=== PATIENT | female | born 2000 | race Caucasian/White ===

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

== ENCOUNTER 2020-10-23 17:40 | Emergency (ER) | payer BC, MEDICAID ==
--- NOTE | 2020-10-23 19:46 | CR ---
Chest: Portable AP view of the chest was obtained. Comparison: Prior chest x-ray of 11/15/19. Heart size and mediastinum are within normal limits for portable technique. There is visualization of the minor fissure overlying the sacrum. Very minimal linear atelectasis is seen within the left midlung. Lungs otherwise are clear with no acute parenchymal change. Tracheostomy tube is seen. Fixation rods are seen within the thoracic and lumbar spine. Impression: 1. Findings believed to be nonacute as described above. 2. No acute finding is appreciated. Diagnostic code #2
--- NOTE | 2020-10-23 19:59 | EDM.PDOC ---
<Yrn Blakely M - Last Filed: 10/23/20 21:05> ED HPI GENERAL MEDICAL PROBLEM - General Chief Complaint: Skin Complaint Stated Complaint: BACK WOUND COMPLAINT Time Seen by Provider: 10/23/20 18:20 Source of Information: Reports: Family History Limitations: Reports: No Limitations - History of Present Illness INITIAL COMMENTS - FREE TEXT/NARRATIVE: 20-year-old female with a history of holoposencephalopathy presents to the emergency department with her aunt and grandmother with complaints of an ulcer noted to a skin fold crease in her right lower back. The caregiver states that for the past few evenings she has run a low-grade temp of 100. They state that they just noticed the open area to her lower back within the last couple of days. They state it is the size of a pencil eraser however it is oozing purulent drainage. Of note, the patient recently completed a course of antibiotics for pneumonia. Caregivers also report that the patient has had decreased urine output over the past couple of days and it is more concentrated. She is incontinent of bowel and bladder. The patient does have a tracheostomy in place and she is noncommunicative. She does have a feeding tube noted to her left upper abdomen. She has nonverbal and wheelchair bound. 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 - Related Data Allergies Allergy/AdvReac Type Severity Reaction Status Date / Time No Known Allergies Allergy Verified 10/23/20 18:13 Home Meds: Home Meds Albuterol [Proventil Neb Soln] 0.83 inh NEB Q4H PRN 08/30/13 [History] Desmopressin Acetate [Ddavp] 0.1 mg GTUBE TID 08/30/13 [History] diazePAM [Diazepam] 1.5 ml JTUBE DAILY 08/30/13 [History] levETIRAcetam [Keppra] 2,000 mg GTUBE BID 11/15/19 [History] Lactulose 20 gm GTUBE ASDIRECTED 10/23/20 [History] Levothyroxine 25 mcg GTUBE ACBREAKFAST 10/23/20 [History] Valproic Acid (As Sodium Salt) [Valproic Acid] 1,000 mg GTUBE BID 10/23/20 [History] cephALEXin [Cephalexin] 500 mg PO TID #14 capsule 10/23/20 [Rx] hydrOXYzine HCl [Hydroxyzine HCl] 12.5 ml GTUBE BID 10/23/20 [History] Past Medical History HEENT History: Reports: None Cardiovascular History: Reports: None Respiratory History: Reports: Asthma, Pneumonia, Recurrent, Other (See Below) Other Respiratory History: hx RSV Gastrointestinal History: Reports: None Genitourinary History: Reports: Urinary Incontinence Musculoskeletal History: Reports: None Neurological History: Reports: Other (See Below) Other Neuro History: semilobar holoprosencephaly Psychiatric History: Reports: Developmental Delay Endocrine/Metabolic History: Reports: Other (See Below) Other Endocrine/Metabolic History: Diabetes insipitus Hematologic History: Reports: Blood Transfusion(s) Oncologic (Cancer) History: Reports: None Dermatologic History: Reports: None - Infectious Disease History Infectious Disease History: Reports: RSV - Past Surgical History Head Surgeries/Procedures: Reports: Other (See Below) HEENT Surgical History: Reports: Adenoidectomy, Tonsillectomy Cardiovascular Surgical History: Reports: None GI Surgical History: Reports: Belle Fundoplication, Other (See Below) Other GI Surgeries/Procedures: G-tube Neurological Surgical History: Reports: Spinal Fusion, Other (See Below) Other Neurological Surgeries/Procedures: hip surgeries Musculoskeletal Surgical History: Reports: Other (See Below) Other Musculoskeletal Surgeries/Procedures:: 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 - History Comment History Comment: CP spastic quadriplegia, semilobar holoprosencephaly, DI, congenital bilateral hip subluxation, GERD with Belle fundoplication, g-tube status, NPO, microcephaly, muscle spasticity, dysphagia, hypertension, ovarian cyst, solitary kidney, neurogenic bladder Social & Family History - Family History Family Medical History: No Pertinent Family History - Tobacco Use Tobacco Use Status *Q: Never Tobacco User Second Hand Smoke Exposure: No - Caffeine Use Caffeine Use: Reports: None - Recreational Drug Use Recreational Drug Use: No - Living Situation & Occupation Living situation: Reports: Other ED ROS GENERAL - Review of Systems Review Of Systems: See Below Constitutional: Reports: Fever HEENT: Reports: Other (Tracheostomy in place) Respiratory: Reports: No Symptoms Cardiovascular: Reports: No Symptoms Endocrine: Reports: No Symptoms GI/Abdominal: Reports: Other (Patient has a bowel movement daily however has not had 1 yet today). Denies: Constipation, Diarrhea, Nausea, Vomiting : Reports: Other (Patient is incontinent of urine; caregiver states that urine has been more concentrated the past couple of days and has had decreased urine output) Musculoskeletal: Reports: Other (Upper and lower extremities with no purposeful movement) Skin: Reports: Other (Open area to right lower back within a skin fold the size of a pencil eraser draining purulent drainage) Neurological: Reports: Other (Patient is nonverbal and noncommunicative. History ofholoprosencephaly) Psychiatric: Reports: No Symptoms Hematologic/Lymphatic: Reports: No Symptoms Immunologic: Reports: No Symptoms ED EXAM, SKIN/RASH Exam: See Below Exam Limited By: No Limitations General Appearance: Alert, WD/WN, No Apparent Distress Eye Exam: Bilateral Eye: PERRL Ears: Normal External Exam Nose: Normal Inspection Throat/Mouth: Normal Inspection, Normal Lips, No Airway Compromise Head: Atraumatic Neck: Other (Tracheostomy in place) Respiratory/Chest: No Respiratory Distress. No: Lungs Clear (Coarse lung sounds throughout) Cardiovascular: Normal Peripheral Pulses, Regular Rate, Rhythm, Other (Heart tones are difficult to auscultate over coarse lung sounds) GI/Abdominal: Normal Bowel Sounds, Soft, Distended (Female) Exam: Deferred Rectal (Female) Exam: Deferred Back Exam: Other (Open area noted to skin fold and right lower back approximately the size of a pencil eraser) Extremities: Normal Inspection, Other (No purposeful movement noted to the upper extremity or lower extremities.) Neurological: Alert Psychiatric: Normal Affect Skin: Warm, Dry, Normal Color, No Rash, Wound/Incision (Open area noted to right lower back within a skin fold approximately the size of a pencil eraser draining purulent drainage). No: Intact Location, Skin: Back Associated features: Weeping (Purulent drainage) Lymphatic: No Adenopathy Course - Vital Signs Text/Narrative:: As stated above the patient does have a significant medical history due to holoprosencephalogy. Upon assessment the patient is lying in bed. She does not appear to be in discomfort. She does have a trach in place and does have coarse lung sounds noted. Abdomen is distended but soft. PEG tube noted to left upper abdomen. Family does have questions regarding the PEG tube and believe that it appears to be tight fitting however they state that it is to be changed out for a larger size within the next week. There is an ulcer noted to the patient's right lower back within a skin fold about the size of a pencil eraser. There is no erythema noted around the ulcer. The open area is jaramillo- tinged with purulent drainage noted. We will culture the open area. I have ordered labs to include a CBC, CMP and a C-reactive protein. We will do a follow-up chest x-ray as the family states they have not done this since completing the course of antibiotics to treat pneumonia. Will obtain a urinalysis via straight cath with micro and culture if indicated. - Re-Assessments/Exams Free Text/Narrative Re-Assessment/Exam: 10/23/20 20:00 Nothing acute is appreciated on portable view of the chest. Official radiologist report is pending Nursing staff notifies me that patient skin feels hot to touch and she is now tachycardic in the 120s. We will also order blood cultures x2 and a lactic acid. 10/23/20 20:10 Radiologist impression portable view of the chest: Heart size and mediastinum are within normal limits for portable technique. There is visualization of the m inor fissure overlying the sacrum. Very minimal linear atelectasis is seen within the left midlung. Lungs otherwise are clear with no acute parenchymal change. Tracheostomy tube is seen. Fixation rods are seen within the thoracic and lumbar spine. 10/23/20 21:05 Staff notifies me that the patient's rectal temperature is 100.1. I have ordered a Tylenol suppository. Dr. Mcclain will be taking over care of this patient. Departure - Departure Disposition: Home, Self-Care 01 Clinical Impression: UTI (urinary tract infection) Qualifiers: Urinary tract infection type: acute cystitis Hematuria presence: without hematuria Qualified Code(s): N30.00 - Acute cystitis without hematuria Open back wound Qualifiers: Encounter type: initial encounter - Discharge Information Prescriptions: cephALEXin [Cephalexin] 500 mg PO TID #14 capsule Instructions: Urinary Tract Infection, Adult, [id number] Referrals: Carey Meeks MD [Primary Care Provider] - Forms: ED Department Discharge Additional Instructions: We have given rocephin 2 grams IV this evening. Start Cephlexin 500 mg 3 times daily starting tomorrow. Prescription has been sent to [facility]. Follow up clinic for recheck in about 5 to 7 days. Call for appt. Return to ED as needed if symptoms worsening in any way. Sepsis Event Note (ED) - Evaluation Sepsis Screening Result: No Definite Risk <Alexander Miller - Last Filed: 10/27/20 07:39> Course - Re-Assessments/Exams Free Text/Narrative Re-Assessment/Exam: 10/27/20 07:39 in receipt of urine culture obtained by catheterization on October 23. Urine is growing out Klebsiella pneumoniae 10,000-50,000 colony-forming units per mL. Organism is sensitive to Augmentin cefazolin ceftriaxone Cipro Floxin and levofloxacin. Resistant to Macrobid and Bactrim. The patient was given Rocephin 2 g intravenously and started on cephalexin 500 mg 3 times daily for suspect urinary tract infection and also coverage potentially of skin infection with an ulcer lower back in the skin fold. At this time no change in medications will be made. She is to be following up with her primary care provider Dr. Carey Orr this week. <James Mcclain - Last Filed: 10/31/20 07:22> Course - Vital Signs Last Recorded V/S: Last Vital Signs Temp 98.2 F 10/23/20 23:30 Pulse 115 H 10/23/20 23:30 Resp 18 10/23/20 23:30 BP 133/80 10/23/20 23:30 Pulse Ox 96 10/23/20 23:30 - Orders/Labs/Meds Labs: Laboratory Tests 10/23/20 10/23/20 10/23/20 Range/Units 19:07 20:04 20:36 WBC 9.97 (3.98-10.04) K/mm3 RBC 3.90 L (3.98-5.22) M/mm3 Hgb 12.2 D (11.2-15.7) gm/dl Hct 36.9 (34.1-44.9) % MCV 94.6 D (79.4-94.8) fl MCH 31.3 (25.6-32.2) pg MCHC 33.1 (32.2-35.5) g/dl RDW Std Deviation 42.6 (36.4-46.3) fL Plt Count 361 (182-369) K/mm3 MPV 9.2 L (9.4-12.3) fl Neut % (Auto) 70.6 (34.0-71.1) % Lymph % (Auto) 13.2 L (19.3-51.7) % [facility] % (Auto) 15.2 H (4.7-12.5) % Eos % (Auto) 0.6 L (0.7-5.8) Baso % (Auto) 0.4 (0.1-1.2) % Neut # (Auto) 7.03 H (1.56-6.13) K/mm3 Lymph # (Auto) 1.32 (1.18-3.74) K/mm3 [facility] # (Auto) 1.52 H (0.24-0.36) K/mm3 Eos # (Auto) 0.06 (0.04-0.36) K/mm3 Baso # (Auto) 0.04 (0.01-0.08) K/mm3 Manual Slide Review Abnormal smear Sodium 144 (136-145) mEq/L Potassium 4.8 (3.5-5.1) mEq/L Chloride 103 (98-107) mEq/L Carbon Dioxide 33 H (21-32) mEq/L Anion Gap 12.8 (5-15) BUN 14 (7-18) mg/dL Creatinine 0.5 L (0.55-1.02) mg/dL Est Cr Clr Drug Dosing 154.98 mL/min Estimated GFR (MDRD) > 60 (>60) mL/min BUN/Creatinine Ratio 28.0 H (14-18) Glucose 109 H (70-99) mg/dL Lactic Acid (0.4-2.0) mmol/L Calcium 9.4 (8.5-10.1) mg/dL Total Bilirubin 0.1 L (0.2-1.0) mg/dL AST 12 L (15-37) U/L ALT 11 L (14-59) U/L Alkaline Phosphatase 74 (46-116) U/L C-Reactive Protein 3.2 H* (<1.0) mg/dL Total Protein 7.8 (6.4-8.2) g/dl Albumin 3.1 L (3.4-5.0) g/dl Globulin 4.7 gm/dL Albumin/Globulin Ratio 0.7 L (1-2) Urine Color Yellow (Yellow) Urine Appearance Clear (Clear) Urine pH 8.5 H (5.0-8.0) Ur Specific [place] 1.015 (1.005-1.030) Urine Protein Trace H (Negative) Urine Glucose (UA) Negative (Negative) Urine Ketones Negative (Negative) Urine Occult Blood Negative (Negative) Urine Nitrite Negative (Negative) Urine Bilirubin Negative (Negative) Urine Urobilinogen 2.0 H (0.2-1.0) Ur Leukocyte Esterase 1+ H (Negative) Urine RBC 0-5 (0-5) /hpf Urine WBC 0-5 (0-5) /hpf Ur Squamous Epith Cells 0-5 (0-5) /hpf Urine Bacteria Few (FEW) /hpf Urine Mucus Not seen (FEW) /hpf 10/23/20 Range/Units 20:36 WBC (3.98-10.04) K/mm3 RBC (3.98-5.22) M/mm3 Hgb (11.2-15.7) gm/dl Hct (34.1-44.9) % MCV (79.4-94.8) fl MCH (25.6-32.2) pg MCHC (32.2-35.5) g/dl RDW Std Deviation (36.4-46.3) fL Plt Count (182-369) K/mm3 MPV (9.4-12.3) fl Neut % (Auto) (34.0-71.1) % Lymph % (Auto) (19.3-51.7) % [facility] % (Auto) (4.7-12.5) % Eos % (Auto) (0.7-5.8) Baso % (Auto) (0.1-1.2) % Neut # (Auto) (1.56-6.13) K/mm3 Lymph # (Auto) (1.18-3.74) K/mm3 [facility] # (Auto) (0.24-0.36) K/mm3 Eos # (Auto) (0.04-0.36) K/mm3 Baso # (Auto) (0.01-0.08) K/mm3 Manual Slide Review Sodium (136-145) mEq/L Potassium (3.5-5.1) mEq/L Chloride (98-107) mEq/L Carbon Dioxide (21-32) mEq/L Anion Gap (5-15) BUN (7-18) mg/dL Creatinine (0.55-1.02) mg/dL Est Cr Clr Drug Dosing mL/min Estimated GFR (MDRD) (>60) mL/min BUN/Creatinine Ratio (14-18) Glucose (70-99) mg/dL Lactic Acid 1.9 (0.4-2.0) mmol/L Calcium (8.5-10.1) mg/dL Total Bilirubin (0.2-1.0) mg/dL AST (15-37) U/L ALT (14-59) U/L Alkaline Phosphatase (46-116) U/L C-Reactive Protein (<1.0) mg/dL Total Protein (6.4-8.2) g/dl Albumin (3.4-5.0) g/dl Globulin gm/dL Albumin/Globulin Ratio (1-2) Urine Color (Yellow) Urine Appearance (Clear) Urine pH (5.0-8.0) Ur Specific [place] (1.005-1.030) Urine Protein (Negative) Urine Glucose (UA) (Negative) Urine Ketones (Negative) Urine Occult Blood (Negative) Urine Nitrite (Negative) Urine Bilirubin (Negative) Urine Urobilinogen (0.2-1.0) Ur Leukocyte Esterase (Negative) Urine RBC (0-5) /hpf Urine WBC (0-5) /hpf Ur Squamous Epith Cells (0-5) /hpf Urine Bacteria (FEW) /hpf Urine Mucus (FEW) /hpf Meds: Medications Discontinued Medications Generic Name Dose Route Start Last Admin Trade Name Freq PRN Reason Stop Dose Admin Acetaminophen 650 mg 10/23/20 21:05 10/23/20 21:16 Acetaminophen 650 Mg Supp RECTAL 10/23/20 21:06 650 mg NOW ONE Administration Ceftriaxone Sodium 2 gm/ 100 mls @ 200 mls/hr 10/23/20 22:20 10/23/20 22:28 Sodium Chloride IV 10/23/20 22:49 200 mls/hr ONETIME ONE Administration - Re-Assessments/Exams Free Text/Narrative Re-Assessment/Exam: 10/23/20 22:24. Have assumed care after change of shift. I agree with Hx and exam as documented by Jesus Blakely. Cath Ua does come back positive for UTI. urine culture ordered. Will give rocephin 2 grams IV. Will start on cephalexin 500 tid for 5 days. Departure - Departure Time of Disposition: 22:48 Condition: Fair
[2020-10-23] MEDS ORDERED: Acetaminophen 650 MG Supp RECTAL ONE (21:05)
[2020-10-23] MEDS ORDERED: cefTRIAXone 2 GM in Sodium Chloride 0.9% 100 ML IV ONE (22:20)
[2020-10-23 23:47] VITALS: BP 133/80; PULSE 115
== END 2020-10-23 23:47 | disposition home or self-care (01) ==
LOC: JD.ED 17:40
DX: S31.000A Unspecified open wound of lower back and pelvis without penetration into retroperitoneum, initial encounter (principal); N30.00 Acute cystitis without hematuria; I10 Essential (primary) hypertension; Z79.899 Other long term (current) drug therapy; X58.XXXA Exposure to other specified factors, initial encounter
CPT/HCPCS: 36415; 71045; 80053; 81001; 83605; 85025; 86140; 87040; 87070; 87075; 87077; 87086; 87088; 87186; 87205; 96365; 99284; A9270; J0696

== ENCOUNTER 2021-03-10 11:17 | Emergency (ER) | payer BC, MEDICAID ==
[2021-03-10] MEDS ORDERED: Sodium Chloride 0.9% 1,000 ML IV ONE ×2 (11:31→12:53)
[2021-03-10] MEDS ORDERED: Sodium Chloride 0.9% 10 ML Syringe FLUSH PRN (11:31)
[2021-03-10 11:36] VITALS: PULSE 152
--- NOTE | 2021-03-10 11:43 | EDM.PDOC ---
ED HPI GENERAL MEDICAL PROBLEM - General Chief Complaint: Respiratory Problem Stated Complaint: FEVER/ SOB Time Seen by Provider: 03/10/21 11:24 Source of Information: Reports: Family (mother), RN Notes Reviewed History Limitations: Reports: No Limitations - History of Present Illness INITIAL COMMENTS - FREE TEXT/NARRATIVE: Patient is a 20-year-old female brought into the ER by her mother for the evaluation of a fever and cough. Patient has multiple congenital issues, is wheelchair-bound, and has a trach. Patient is nonverbal, mother provides most of the history. Mother states that the patient became somewhat ill last night, and had a fever this morning as high as 103 F. Mother did give some ibuprofen for this today. Mother states that the patient has had thick secretions, coming from her trach, which has required her to turn her oxygen requirements up during nighttime use. Mother states that the patient is typically on 4 L via trach collar but now she is requiring about 5 L to get sats in the low 90s. Mother states that she does have another child at home sick, for the last month but he did test negative with an at-home test for COVID-19 few days ago. Mother states that she did give the patient some cough medicine as well which she typically does not do. Mother states that the patient also has had decreased urine output that she was concerned about. Patient has received her initial Pfizer COVID shots, along with a booster, and did receive her flu shot this year as well. Primary care doctor is Dr. Meeks. - Related Data Allergies Allergy/AdvReac Type Severity Reaction Status Date / Time No Known Allergies Allergy Verified 03/10/21 11:45 Home Meds: Home Meds Albuterol [Proventil Neb Soln] 0.83 inh NEB Q4H PRN 08/30/13 [History] Desmopressin Acetate [Ddavp] 0.1 mg GTUBE TID 08/30/13 [History] diazePAM [Diazepam] 1.5 ml JTUBE DAILY 08/30/13 [History] levETIRAcetam [Keppra] 2,000 mg GTUBE BID 11/15/19 [History] Lactulose 20 gm GTUBE ASDIRECTED 10/23/20 [History] Levothyroxine 25 mcg GTUBE ACBREAKFAST 10/23/20 [History] Valproic Acid (As Sodium Salt) [Valproic Acid] 1,000 mg GTUBE BID 10/23/20 [History] hydrOXYzine HCl [Hydroxyzine HCl] 12.5 ml GTUBE BID 10/23/20 [History] Azithromycin [Zithromax 200 MG/5 ML Susp] 250 mg PEGTUBE ASDIRECTED 5 Days #50 ml 03/10/21 [Rx] Cefdinir [Omnicef 250 MG/5 ML Susp] 300 mg PEGTUBE BID 7 Days #275 ml 03/10/21 [Rx] Past Medical History Cardiovascular History: Reports: Hypertension Respiratory History: Reports: Asthma, Pneumonia, Recurrent, Other (See Below) Other Respiratory History: 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 Gastrointestinal History: Reports: GERD, Other (See Below) Other Gastrointestinal History: dysphagia; Pt is NPO and has G-tube; has solitary kidney Genitourinary History: Reports: Neurogenic Bladder, Urinary Incontinence [employer]ESS[employer] History: Reports: Other (See Below) (hx/o ovarian cyst) Musculoskeletal History: Reports: Other (See Below) Other Musculoskeletal History: congenital bilateral hip subluxation Neurological History: Reports: Cerebral Palsy (CP with spastic quadriplegia), Seizure, Other (See Below) Other Neuro History: semilobar holoprosencephaly Psychiatric History: Reports: Developmental Delay Endocrine/Metabolic History: Reports: Other (See Below) Other Endocrine/Metabolic History: Diabetes insipidus Hematologic History: Reports: Blood Transfusion(s) Dermatologic History: Reports: Decubitus Ulcer - Infectious Disease History Infectious Disease History: Reports: RSV - Past Surgical History HEENT Surgical History: Reports: Adenoidectomy, Tonsillectomy GI Surgical History: Reports: Belle Fundoplication, Other (See Below) Other GI Surgeries/Procedures: G-tube Neurological Surgical History: Reports: Spinal Fusion Musculoskeletal Surgical History: Reports: Other (See Below) Other Musculoskeletal Surgeries/Procedures:: hip surgeries d/t congenital issues - History Comment History Comment: Pt has [employer] COVID-19 vaccine with current booster; Influenza shot for 2020 season Social & Family History - Family History Family Medical History: No Pertinent Family History - Caffeine Use Caffeine Use: Reports: None - Living Situation & Occupation Living situation: Reports: Other ED ROS GENERAL - Review of Systems Review Of Systems: Comprehensive ROS is negative, except as noted in HPI. ED EXAM, GENERAL - Physical Exam Exam: See Below Exam Limited By: Physical Impairment General Appearance: Alert, WD/WN, No Apparent Distress Respiratory/Chest: No Respiratory Distress, No Accessory Muscle Use, Chest Non- Tender, Rhonchi (bilateral). No: Wheezing Cardiovascular: Normal Peripheral Pulses, Regular Rate, Rhythm, No Edema GI/Abdominal: Normal Bowel Sounds, Soft, Non-Tender, No Organomegaly, No Distention Extremities: Normal Inspection, Normal Capillary Refill Neurological: Alert, Oriented Psychiatric: Normal Affect, Normal Mood Skin Exam: Warm, Dry, Intact, Normal Color, No Rash Course - Vital Signs Last Recorded V/S: Last Vital Signs Temp 97.4 F 03/10/21 11:29 Pulse 152 H 03/10/21 11:29 Resp 23 H 03/10/21 11:29 BP 158/88 H 03/10/21 11:52 Pulse Ox 98 03/10/21 11:29 - Orders/Labs/Meds Orders: Active Orders 24 hr Category Date Time Status Blood Pressure Mgt: Sepsis [RC] Q15MX2 Care 03/10/21 11:32 Ordered Chest 1V Frontal [CR] Stat Exams 03/10/21 11:31 Ordered BLOOD CULTURE [MREF] Stat Lab 03/10/21 11:32 Ordered BLOOD CULTURE [MREF] Stat Lab 03/10/21 11:32 Ordered Sodium Chloride 0.9% [Saline Flush] Med 03/10/21 11:31 Ordered 10 ml FLUSH ASDIRECTED PRN Blood Culture x2 Reflex Set [OM.PC] Stat Oth 03/10/21 11:32 Ordered Isolation [COMM] Routine Oth 03/10/21 11:42 Ordered Saline Lock Insert [OM.PC] Stat Oth 03/10/21 11:32 Ordered Medication Orders Sodium Chloride (Sodium Chloride 0.9% 10 Ml Syringe) 10 ml FLUSH ASDIRECTED PRN PRN Reason: Keep Vein Open Last Admin: 03/10/21 11:57 Dose: 10 ml Documented by: LORAINE Labs: Laboratory Tests 03/10/21 03/10/21 03/10/21 Range/Units 11:47 11:47 12:10 WBC 24.35 H (3.98-10.04) K/mm3 RBC 4.05 (3.98-5.22) M/mm3 Hgb 12.4 (11.2-15.7) gm/dl Hct 38.7 (34.1-44.9) % MCV 95.6 H (79.4-94.8) fl MCH 30.6 (25.6-32.2) pg MCHC 32.0 L (32.2-35.5) g/dl RDW Std Deviation 43.9 (36.4-46.3) fL Plt Count 303 (182-369) K/mm3 MPV 9.3 L (9.4-12.3) fl Neutrophils % (Manual) 82 H (40-60) % Band Neutrophils % 0 (0-10) % Lymphocytes % (Manual) 6 L (20-40) % Atypical Lymphs % 0 % Monocytes % (Manual) 12 H (2-10) % Eosinophils % (Manual) 0 L (0.7-5.8) % Basophils % (Manual) 0 L (0.1-1.2) Platelet Estimate Adequate Anisocytosis 1+ slight RBC Morph Comment Abnormal Sodium (136-145) mEq/L Potassium (3.5-5.1) mEq/L Chloride (98-107) mEq/L Carbon Dioxide (21-32) mEq/L Anion Gap (5-15) BUN (7-18) mg/dL Creatinine (0.55-1.02) mg/dL Est Cr Clr Drug Dosing mL/min Estimated GFR (MDRD) (>60) mL/min BUN/Creatinine Ratio (14-18) Glucose (70-99) mg/dL Lactic Acid (0.4-2.0) mmol/L Calcium (8.5-10.1) mg/dL Total Bilirubin (0.2-1.0) mg/dL AST (15-37) U/L ALT (14-59) U/L Alkaline Phosphatase (46-116) U/L C-Reactive Protein (<1.0) mg/dL Total Protein (6.4-8.2) g/dl Albumin (3.4-5.0) g/dl Globulin gm/dL Albumin/Globulin Ratio (1-2) Urine Color Yellow (Yellow) Urine Appearance Clear (Clear) Urine pH 6.5 (5.0-8.0) Ur Specific [place] 1.025 (1.005-1.030) Urine Protein 2+ H (Negative) Urine Glucose (UA) Negative (Negative) Urine Ketones 1+ H (Negative) Urine Occult Blood Negative (Negative) Urine Nitrite Negative (Negative) Urine Bilirubin 1+ H (Negative) Urine Urobilinogen 4.0 H (0.2-1.0) Ur Leukocyte Esterase Negative (Negative) Influenza Type A RNA Negative (NEGATIVE) RSV RNA (INAAT) Negative (NEGATIVE) Influenza Type B RNA Negative (NEGATIVE) SARS-CoV-2 RNA (MITUL) Negative (NEGATIVE) 03/10/21 03/10/21 03/10/21 Range/Units 12:10 12:10 14:25 WBC (3.98-10.04) K/mm3 RBC (3.98-5.22) M/mm3 Hgb (11.2-15.7) gm/dl Hct (34.1-44.9) % MCV (79.4-94.8) fl MCH (25.6-32.2) pg MCHC (32.2-35.5) g/dl RDW Std Deviation (36.4-46.3) fL Plt Count (182-369) K/mm3 MPV (9.4-12.3) fl Neutrophils % (Manual) (40-60) % Band Neutrophils % (0-10) % Lymphocytes % (Manual) (20-40) % Atypical Lymphs % % Monocytes % (Manual) (2-10) % Eosinophils % (Manual) (0.7-5.8) % Basophils % (Manual) (0.1-1.2) Platelet Estimate Anisocytosis RBC Morph Comment Sodium 138 (136-145) mEq/L Potassium 4.3 (3.5-5.1) mEq/L Chloride 98 (98-107) mEq/L Carbon Dioxide 32 (21-32) mEq/L Anion Gap 12.3 (5-15) BUN 15 (7-18) mg/dL Creatinine 0.6 (0.55-1.02) mg/dL Est Cr Clr Drug Dosing 107.43 mL/min Estimated GFR (MDRD) > 60 (>60) mL/min BUN/Creatinine Ratio 25.0 H (14-18) Glucose 99 (70-99) mg/dL Lactic Acid 2.2 H* 1.4 (0.4-2.0) mmol/L Calcium 8.8 (8.5-10.1) mg/dL Total Bilirubin 0.3 (0.2-1.0) mg/dL AST 15 (15-37) U/L ALT 15 (14-59) U/L Alkaline Phosphatase 73 (46-116) U/L C-Reactive Protein 1.9 H* (<1.0) mg/dL Total Protein 8.1 (6.4-8.2) g/dl Albumin 3.3 L (3.4-5.0) g/dl Globulin 4.8 gm/dL Albumin/Globulin Ratio 0.7 L (1-2) Urine Color (Yellow) Urine Appearance (Clear) Urine pH (5.0-8.0) Ur Specific [place] (1.005-1.030) Urine Protein (Negative) Urine Glucose (UA) (Negative) Urine Ketones (Negative) Urine Occult Blood (Negative) Urine Nitrite (Negative) Urine Bilirubin (Negative) Urine Urobilinogen (0.2-1.0) Ur Leukocyte Esterase (Negative) Influenza Type A RNA (NEGATIVE) RSV RNA (INAAT) (NEGATIVE) Influenza Type B RNA (NEGATIVE) SARS-CoV-2 RNA (MITUL) (NEGATIVE) Meds: Medications Generic Name Dose Route Start Last Admin Trade Name Freq PRN Reason Stop Dose Admin Sodium Chloride 10 ml 03/10/21 11:31 03/10/21 11:57 Sodium Chloride 0.9% 10 Ml Syringe FLUSH 10 ml ASDIRECTED PRN Administration Keep Vein Open Discontinued Medications Generic Name Dose Route Start Last Admin Trade Name Freq PRN Reason Stop Dose Admin Sodium Chloride 1,000 mls @ 999 mls/hr 03/10/21 11:31 03/10/21 11:56 Normal Saline IV 03/10/21 12:31 999 mls/hr BOLUS ONE Administration Protocol Sodium Chloride 1,000 mls @ 999 mls/hr 03/10/21 12:53 03/10/21 13:11 Normal Saline IV 03/10/21 13:53 999 mls/hr ONETIME ONE Administration Ceftriaxone Sodium 2 gm/ 100 mls @ 200 mls/hr 03/10/21 12:57 03/10/21 13:15 Sodium Chloride IV 03/10/21 13:26 200 mls/hr ONETIME ONE Administration - Re-Assessments/Exams Free Text/Narrative Re-Assessment/Exam: 03/10/21 11:56 Patient presents to the ER for the evaluation of her fever and cough. Covid/flu/RSV screen has been obtained at the time of triage, we will get IV established, give her some fluids, and check some labs along with a chest x-ray and a urinalysis for ongoing management. 03/10/21 13:33 Covid/flu/RSV swab were negative. Patient's white count did come back elevated at 24.35, metabolic panel essentially unremarkable, lactic acid was a little bit elevated at 2.2, CRP elevated at 1.9. Urinalysis negative for any source of infection. Chest x-ray was suggestive of interstitial prominence in both lungs worse on the right suspicious for infiltrate, due to the patient's cough, fever, and elevated white count this is clinically consistent with a right-sided pneumonia. Another liter of fluids has been ordered for the patient due to the mildly elevated lactic acid. Patient will be given 2 g IV Rocephin in the ER at this time. I did discuss patient's management with family and they state that they would be able to take her home with appropriate medications and would like to do as such and try this. I did explain strict return precautions and they did verbalize understanding. Patient will need to stay for repeat lactic acid as well, family was aware. On reexam, patient's tachycardia has improved, patient is requiring less oxygen as well; and is now about 99% on 4 L via trach collar and the patient does have better skin color; the family did state that she looks more comfortable than she did when she came in. 03/10/21 14:03 I was able to speak with the pharmacy that is open today, and they do have the liquid antibiotics in stock, both azithromycin and Omnicef. Patient can start these medications tomorrow due to having received the Rocephin today. 03/10/21 14:58 Patient's repeat lactic acid did come down to 1.4. We will go ahead and get her discharged home at this time. Departure - Departure Time of Disposition: 14:03 Disposition: Home, Self-Care 01 Condition: Good Clinical Impression: Pneumonia Qualifiers: Pneumonia type: due to unspecified organism Laterality: right Lung location: unspecified part of lung Qualified Code(s): J18.9 - Pneumonia, unspecified organism - Discharge Information *PRESCRIPTION DRUG MONITORING PROGRAM REVIEWED*: No *COPY OF PRESCRIPTION DRUG MONITORING REPORT IN PATIENT EUSEBIO: No Prescriptions: Cefdinir [Omnicef 250 MG/5 ML Susp] 300 mg PEGTUBE BID 7 Days #275 ml Azithromycin [Zithromax 200 MG/5 ML Susp] 250 mg PEGTUBE ASDIRECTED 5 Days #50 ml Instructions: Community-Acquired Pneumonia, Adult, [id number] Referrals: Carey Meeks MD [Primary Care Provider] - Forms: ED Department Discharge Additional Instructions: You were evaluated in the ER today for your fever and cough. Your influenza/COVID/RSV screens were negative at today's visit. Your chest x- ray did demonstrate a right sided pneumonia. You were given some IV fluids, and IV antibiotics for initial management of this and this seemed to help make your symptoms seem a little bit better prior to discharge. Repeat lactic acid was within normal limits. Recommend that you give Tylenol and/or ibuprofen every 6 hours as needed for ongoing fever/discomfort. You have been started on 2 different antibiotics. You will need to take a azithromycin, 500 mg on day 1, then 250 mg x 4 days. Dosing for Omnicef will be 300 mg 2 times a day for the next 7 days. Please note that due to these being liquid medications there is going to be a little bit more in the bottle, to account for some minor spillage or otherwise. Due to it being ; the only pharmacy does open is clinic pharmacy located in the [facility], they state that they will be open to around 3 PM for prescriptions, and they state it will take at least that long to get your medications ready. Your meds have been electronically prescribed there and should be ready at that time. I would recommend that you follow-up with your regular care provider, sometime this week to get a recheck on your symptoms and make sure things are getting better as expected. If your symptoms should change or worsen at all, do not hesitate to return to the ER for ongoing management. Thank you for allowing and choosing us to be involved in your healthcare needs. Sepsis Event Note (ED) - Focused Exam Vital Signs: Vital Signs Temp Pulse Resp BP Pulse Ox 03/10/21 11:52 158/88 H 03/10/21 11:29 97.4 F 152 H 23 H 152/95 H 98 - My Orders Last 24 Hours: My Active Orders 03/10/21 11:31 Chest 1V Frontal [CR] Stat Sodium Chloride 0.9% [Saline Flush] 10 ml FLUSH ASDIRECTED PRN 03/10/21 11:32 Blood Pressure Mgt: Sepsis [RC] Q15MX2 BLOOD CULTURE [MREF] Stat BLOOD CULTURE [MREF] Stat Blood Culture x2 Reflex Set [OM.PC] Stat Saline Lock Insert [OM.PC] Stat 03/10/21 11:42 Isolation [COMM] Routine - Assessment/Plan Last 24 Hours: My Active Orders 03/10/21 11:31 Chest 1V Frontal [CR] Stat Sodium Chloride 0.9% [Saline Flush] 10 ml FLUSH ASDIRECTED PRN 03/10/21 11:32 Blood Pressure Mgt: Sepsis [RC] Q15MX2 BLOOD CULTURE [MREF] Stat BLOOD CULTURE [MREF] Stat Blood Culture x2 Reflex Set [OM.PC] Stat Saline Lock Insert [OM.PC] Stat 03/10/21 11:42 Isolation [COMM] Routine
[2021-03-10 11:56] VITALS: BP 158/88
[2021-03-10 12:31] LABS: CORONAVIRUS COVID-19 NAA NEGATIVE (NEGATIVE)
[2021-03-10] MEDS ORDERED: cefTRIAXone 2 GM in Sodium Chloride 0.9% 100 ML IV ONE (12:57)
--- NOTE | 2021-03-11 08:37 | CR ---
Chest: Portable view of the chest was obtained. Comparison: Prior chest x-ray of 10/23/20. Tracheostomy tube is seen. Spinal fixation rods are seen. Heart size and mediastinum are normal. Slight atelectasis is seen within the right upper lung. Patient is rotated to the right side which is felt to cause some increased density which I believe to be artifact. I see no definite acute parenchymal change. Impression: 1. Findings as described above. 2. Slight atelectasis within the right upper lung. 3. No definite acute parenchymal abnormality is appreciated. Diagnostic code #2 I questionably disagree with preliminary report from [facility], finalized on 03/10/21, 2:04 PM PHARMACIST'S AIDE, code 2
== END 2021-03-10 15:50 | disposition home or self-care (01) ==
LOC: JD.ED 11:17
DX: J18.9 Pneumonia, unspecified organism (principal); I10 Essential (primary) hypertension; K21.9 Gastro-esophageal reflux disease without esophagitis; Z20.822 Contact with and (suspected) exposure to COVID-19; Z79.899 Other long term (current) drug therapy
CPT/HCPCS: 0241U; 36415; 71045; 80053; 81003; 83605; 85007; 85027; 86140; 87040; 96365; 99283; J0696; J7030; 99284

== ENCOUNTER 2021-10-15 10:51 | Emergency (ER) | payer BC, MEDICAID ==
[2021-10-15] MEDS ORDERED: Sodium Chloride 0.9% 10 ML Syringe FLUSH PRN (11:29)
[2021-10-15 13:17] LABS: ESTIMATED GFR 155 mL/min (>60)
[2021-10-15] MEDS ORDERED: Sodium Chloride 0.9% 1,000 ML IV ONE (13:27)
[2021-10-15] MEDS ORDERED: cefTRIAXone 2 GM in Sodium Chloride 0.9% 100 ML IV ONE (13:41)
[2021-10-15 15:11] LABS: CORONAVIRUS COVID-19 NAA NEGATIVE (NEGATIVE)
[2021-10-15 18:37] VITALS: BP 160/98; PULSE 115
== END 2021-10-15 16:40 | disposition home or self-care (01) ==
LOC: JD.ED 10:51
DX: J18.9 Pneumonia, unspecified organism (principal); J45.909 Unspecified asthma, uncomplicated; I10 Essential (primary) hypertension; Z79.899 Other long term (current) drug therapy; Z20.822 Contact with and (suspected) exposure to COVID-19
CPT/HCPCS: 0240U; 36415; 71045; 80053; 81001; 83605; 85007; 85027; 85610; 86140; 87040; 96361; 96365; 99284; J0696; J3490; J7030

== ENCOUNTER 2022-04-24 16:28 | Inpatient (IN) | payer BC, MEDICAID ==
[2022-04-24] MEDS ORDERED: Azithromycin 500 MG in Sodium Chloride 0.9% 250 ML IV ONE (17:14)
[2022-04-24] MEDS ORDERED: Cefepime 2 GM in Sodium Chloride 0.9% 50 ML IV ONE (17:14)
[2022-04-24] MEDS ORDERED: Sodium Chloride 0.9% 1,000 ML IV ONE ×2 (17:15→20:50)
[2022-04-24 17:44] LABS: CORONAVIRUS COVID-19 NAA NEGATIVE (NEGATIVE)
[2022-04-24] MEDS ORDERED: Iopamidol 612 MG/ML 100 ML Bottle IVPUSH ONE (17:53)
[2022-04-24] MEDS ORDERED: Sodium Chloride 0.9% 10 ML Syringe FLUSH ONE (18:00)
[2022-04-24 18:33] LABS: ESTIMATED GFR 131 mL/min (>60)
[2022-04-24] MEDS ORDERED: Albuterol 0.083% 2.5 MG/3 ML Neb Soln NEB PRN (23:34)
[2022-04-24] MEDS: Sodium Chloride 0.9% 1,000 ML IV SCH (23:44)
[2022-04-24] MEDS: Acetaminophen 325 MG/10.15 ML ML PO PRN (23:45)
[2022-04-24] MEDS: Enoxaparin 40 MG/0.4 ML Syringe SUBCUT SCH (23:46)
[2022-04-25] MEDS: Scopolamine 1.5 MG Transdermal Patch TOP SCH (00:46)
[2022-04-25] MEDS: Albuterol 0.083% 2.5 MG/3 ML Neb Soln NEB SCH ×6 (03:24→22:02)
[2022-04-25] MEDS: Acetaminophen 325 MG/10.15 ML ML PO PRN (05:18)
[2022-04-25] MEDS ORDERED: Ipratropium 0.02% 0.5 MG/2.5 ML Neb Soln NEB SCH (06:00)
[2022-04-25] MEDS ORDERED: Albuterol 0.021% 0.63 MG/3 ML Neb Soln NEB PRN (08:11)
[2022-04-25] MEDS ORDERED: Lactulose Soln 10 GM/15 ML 30 ML UD Cup GTUBE PRN (08:11)
[2022-04-25] MEDS ORDERED: Scopolamine 1.5 MG Transdermal Patch TRDERM SCH (08:15)
[2022-04-25] MEDS ORDERED: guaiFENesin/Dextromethorphan 100-10 MG/5 ML Soln 5 ML Cup PO PRN (08:49)
[2022-04-25] MEDS ORDERED: levETIRAcetam Soln 500 MG/5 ML Cup GTUBE SCH (09:00)
[2022-04-25] MEDS ORDERED: Valproic Acid 250 MG/5 ML Syrup ML (473 ML Bottle) GTUBE SCH (09:00)
[2022-04-25] MEDS ORDERED: VALPROIC ACID 250 MG/5 ML GTUBE SCH (09:40)
[2022-04-25] MEDS ORDERED: Metoprolol Tartrate 5 MG/5 ML SDV IVPUSH PRN (09:57)
[2022-04-25] MEDS ORDERED: Levalbuterol HCl 1.25 MG/3 ML Neb NEB PRN (09:58)
[2022-04-25] MEDS ORDERED: Ondansetron 4 MG/2 ML SDV IV PRN (10:01)
[2022-04-25] MEDS ORDERED: Metoprolol Tartrate 5 MG/5 ML SDV IVPUSH ONE (10:15)
[2022-04-25] MEDS: Levalbuterol HCl 1.25 MG/0.5 ML Neb NEB SCH ×3 (10:47→20:52)
[2022-04-25] MEDS: Ipratropium 0.02% 0.5 MG/2.5 ML Neb Soln NEB SCH ×3 (10:48→20:52)
[2022-04-25] MEDS: Acetaminophen Soln 650 MG/20.3 ML UD Cup GTUBE PRN ×3 (10:54→21:12)
[2022-04-25] MEDS: Enoxaparin 40 MG/0.4 ML Syringe SUBCUT SCH (10:56)
[2022-04-25] MEDS: DIAZEPAM 5 MG/5 ML JTUBE SCH ×3 (10:57→21:14)
[2022-04-25] MEDS: HYDROXYZINE HCL 10 MG/5 ML GTUBE SCH ×2 (10:59→21:14)
[2022-04-25] MEDS ORDERED: VANCOmycin 1.5 GM/300 ML 1.5 GM in Premix Bag 1 BAG IV SCH (11:00)
[2022-04-25] MEDS: IVABRADINE HCL 5 MG PEGTUBE SCH ×2 (11:02→21:15)
[2022-04-25] MEDS: levETIRAcetam Soln 500 MG/5 ML Cup GTUBE SCH ×2 (11:43→21:09)
[2022-04-25] MEDS: Sodium Chloride 0.9% 1,000 ML IV SCH (11:47)
[2022-04-25] MEDS: VALPROIC ACID 250 MG/5 ML GTUBE SCH ×2 (12:10→21:15)
[2022-04-25] MEDS: guaiFENesin/Dextromethorphan 100-10 MG/5 ML Soln 5 ML Cup GTUBE SCH ×2 (13:17→21:09)
[2022-04-25] MEDS: guaiFENesin/Dextromethorphan 100-10 MG/5 ML Soln 5 ML Cup GTUBE PRN (17:19)
[2022-04-25] MEDS: Doxycycline 100 MG in Sodium Chloride 0.9% 100 ML IV SCH (20:59)
[2022-04-25] MEDS ORDERED: Acetaminophen/HYDROcodone 325-10 MG Tab PO PRN (23:29)
[2022-04-26] MEDS: Levothyroxine 25 MCG Tab GTUBE SCH (05:24)
[2022-04-26] MEDS: Sodium Chloride 0.9% 1,000 ML IV SCH ×2 (05:25→22:37)
[2022-04-26] MEDS: guaiFENesin/Dextromethorphan 100-10 MG/5 ML Soln 5 ML Cup GTUBE SCH ×4 (05:31→21:28)
[2022-04-26] MEDS: Ipratropium 0.02% 0.5 MG/2.5 ML Neb Soln NEB SCH ×4 (05:47→21:06)
[2022-04-26] MEDS: Levalbuterol HCl 1.25 MG/0.5 ML Neb NEB SCH ×4 (05:47→21:06)
[2022-04-26] MEDS ORDERED: Magnesium Sulfate/Water 2 GM in Premix Bag 1 BAG IV ONE (09:00)
[2022-04-26] MEDS: Doxycycline 100 MG in Sodium Chloride 0.9% 100 ML IV SCH ×2 (09:07→21:29)
[2022-04-26] MEDS: Enoxaparin 40 MG/0.4 ML Syringe SUBCUT SCH (09:11)
[2022-04-26] MEDS: levETIRAcetam Soln 500 MG/5 ML Cup GTUBE SCH ×2 (09:11→21:26)
[2022-04-26] MEDS: Acetaminophen Soln 650 MG/20.3 ML UD Cup GTUBE PRN (09:14)
[2022-04-26] MEDS: guaiFENesin/Dextromethorphan 100-10 MG/5 ML Soln 5 ML Cup GTUBE PRN (09:15)
[2022-04-26] MEDS: HYDROXYZINE HCL 10 MG/5 ML GTUBE SCH ×2 (09:21→21:26)
[2022-04-26] MEDS: VALPROIC ACID 250 MG/5 ML GTUBE SCH ×2 (09:22→21:27)
[2022-04-26] MEDS: DIAZEPAM 5 MG/5 ML JTUBE SCH ×3 (09:24→21:26)
[2022-04-26] MEDS: IVABRADINE HCL 5 MG PEGTUBE SCH ×2 (09:25→21:26)
[2022-04-26] MEDS: Potassium Chloride 10 MEQ in Premix Bag 1 BAG IV SCH ×4 (13:00→19:01)
[2022-04-27] MEDS: guaiFENesin/Dextromethorphan 100-10 MG/5 ML Soln 5 ML Cup GTUBE PRN (03:40)
[2022-04-27] MEDS: Acetaminophen Soln 650 MG/20.3 ML UD Cup GTUBE PRN ×4 (03:40→23:32)
[2022-04-27] MEDS: Ipratropium 0.02% 0.5 MG/2.5 ML Neb Soln NEB SCH (06:51)
[2022-04-27] MEDS: Levalbuterol HCl 1.25 MG/0.5 ML Neb NEB SCH (06:51)
[2022-04-27] MEDS: guaiFENesin/Dextromethorphan 100-10 MG/5 ML Soln 5 ML Cup GTUBE SCH ×4 (08:04→21:23)
[2022-04-27] MEDS: Enoxaparin 40 MG/0.4 ML Syringe SUBCUT SCH (08:04)
[2022-04-27] MEDS: levETIRAcetam Soln 500 MG/5 ML Cup GTUBE SCH ×2 (08:05→21:22)
[2022-04-27] MEDS: Levothyroxine 25 MCG Tab GTUBE SCH (08:05)
[2022-04-27] MEDS: HYDROXYZINE HCL 10 MG/5 ML GTUBE SCH ×2 (08:06→21:23)
[2022-04-27] MEDS: VALPROIC ACID 250 MG/5 ML GTUBE SCH ×2 (08:06→21:23)
[2022-04-27] MEDS: IVABRADINE HCL 5 MG PEGTUBE SCH ×2 (08:06→21:23)
[2022-04-27] MEDS: DIAZEPAM 5 MG/5 ML JTUBE SCH ×3 (08:06→21:23)
[2022-04-27] MEDS: Levofloxacin/Dextrose 5%-Water 500 MG in Premix Bag 1 BAG IV SCH (08:19)
[2022-04-27] MEDS ORDERED: Ipratropium 0.02% 0.5 MG/2.5 ML Neb Soln NEB PRN (09:06)
[2022-04-27] MEDS: Clindamycin Phosphate in D5W 900 MG in Premix Bag 1 BAG IV SCH ×6 (12:49→23:40)
[2022-04-27] MEDS: Sodium Chloride 0.9% 1,000 ML IV SCH (18:18)
[2022-04-27] MEDS: Scopolamine 1.5 MG Transdermal Patch TOP SCH ×2 (21:55→23:30)
[2022-04-28] MEDS: guaiFENesin/Dextromethorphan 100-10 MG/5 ML Soln 5 ML Cup GTUBE SCH ×3 (06:24→21:33)
[2022-04-28] MEDS: Levothyroxine 25 MCG Tab GTUBE SCH (06:24)
[2022-04-28] MEDS: Clindamycin Phosphate in D5W 900 MG in Premix Bag 1 BAG IV SCH ×8 (06:25→23:45)
[2022-04-28] MEDS: Levofloxacin/Dextrose 5%-Water 500 MG in Premix Bag 1 BAG IV SCH (08:46)
[2022-04-28] MEDS: Acetaminophen Soln 650 MG/20.3 ML UD Cup GTUBE PRN ×2 (08:48→15:58)
[2022-04-28] MEDS: levETIRAcetam Soln 500 MG/5 ML Cup GTUBE SCH ×2 (08:48→21:33)
[2022-04-28] MEDS: Enoxaparin 40 MG/0.4 ML Syringe SUBCUT SCH (08:49)
[2022-04-28] MEDS ORDERED: Magnesium Sulfate/Water 2 GM in Premix Bag 1 BAG IV ONE (09:00)
[2022-04-28] MEDS: IVABRADINE HCL 5 MG PEGTUBE SCH ×2 (09:07→21:21)
[2022-04-28] MEDS: VALPROIC ACID 250 MG/5 ML GTUBE SCH ×2 (09:07→21:23)
[2022-04-28] MEDS: DIAZEPAM 5 MG/5 ML JTUBE SCH ×3 (09:07→21:17)
[2022-04-28] MEDS: HYDROXYZINE HCL 10 MG/5 ML GTUBE SCH ×2 (09:07→21:19)
[2022-04-28] MEDS: Sodium Chloride 0.9% 1,000 ML IV SCH (13:24)
[2022-04-28] MEDS: traMADol 50 MG Tab PO PRN ×2 (15:57→21:34)
[2022-04-29] MEDS: Acetaminophen Soln 650 MG/20.3 ML UD Cup GTUBE PRN (05:43)
[2022-04-29] MEDS: guaiFENesin/Dextromethorphan 100-10 MG/5 ML Soln 5 ML Cup GTUBE SCH ×2 (05:43→07:35)
[2022-04-29] MEDS: Levothyroxine 25 MCG Tab GTUBE SCH (05:43)
[2022-04-29] MEDS: Clindamycin Phosphate in D5W 900 MG in Premix Bag 1 BAG IV SCH ×2 (05:49)
[2022-04-29] MEDS: Levofloxacin/Dextrose 5%-Water 500 MG in Premix Bag 1 BAG IV SCH (08:42)
[2022-04-29] MEDS: levETIRAcetam Soln 500 MG/5 ML Cup GTUBE SCH (08:44)
[2022-04-29] MEDS: Enoxaparin 40 MG/0.4 ML Syringe SUBCUT SCH (08:44)
[2022-04-29] MEDS: DIAZEPAM 5 MG/5 ML JTUBE SCH (08:47)
[2022-04-29] MEDS: HYDROXYZINE HCL 10 MG/5 ML GTUBE SCH (08:48)
[2022-04-29] MEDS: IVABRADINE HCL 5 MG PEGTUBE SCH (08:49)
[2022-04-29] MEDS: VALPROIC ACID 250 MG/5 ML GTUBE SCH (08:54)
[2022-04-29 09:20] VITALS: BP 103/65; PULSE 109
== END 2022-04-29 10:42 | DRG 720 ==
LOC: JD.ED 16:28 → JD.MS 21:39
PROVIDERS: ADMIT Internal Medicine Cardiovascular Disease; ATTEND Internal Medicine Cardiovascular Disease
DX: A41.9 Sepsis, unspecified organism (principal); J15.7 Pneumonia due to Mycoplasma pneumoniae; L03.115 Cellulitis of right lower limb; G40.909 Epilepsy, unspecified, not intractable, without status epilepticus; G80.9 Cerebral palsy, unspecified; R62.50 Unspecified lack of expected normal physiological development in childhood; R65.20 Severe sepsis without septic shock; J96.11 Chronic respiratory failure with hypoxia; Z20.822 Contact with and (suspected) exposure to COVID-19; I10 Essential (primary) hypertension; J45.909 Unspecified asthma, uncomplicated; E03.9 Hypothyroidism, unspecified; N31.9 Neuromuscular dysfunction of bladder, unspecified; E23.2 Diabetes insipidus; Z93.1 Gastrostomy status; Z99.81 Dependence on supplemental oxygen; Z99.3 Dependence on wheelchair; Z79.890 Hormone replacement therapy; Z93.0 Tracheostomy status; Z79.52 Long term (current) use of systemic steroids; Z79.899 Other long term (current) drug therapy; Z87.01 Personal history of pneumonia (recurrent); Z90.49 Acquired absence of other specified parts of digestive tract; Z90.89 Acquired absence of other organs; Z98.890 Other specified postprocedural states; Z98.1 Arthrodesis status; Q60.0 Renal agenesis, unilateral; Q65.4 Congenital partial dislocation of hip, bilateral
CPT/HCPCS: 0241U; 36415; 36600; 71045; 71045-26; 71260; 71260-26; 74177; 74177-26; 80048; 80053; 80202; 81001; 82803; 83605; 83690; 83735; 84145; 84484; 85025; 85027; 86140; 86738; 87040; 87641; 93005; 93010; 93970; 93970-26; 94640; 94667; 94761; 96361; 96365; 96368; 99223; 99233; 99239; 99285; 99285-25; A9270-GY; J0456; J0692; J1650; J1956; J3370; J3475; J3480; J3490; J7030; J7050; J7612-GY; J7620-GY; Q9967